=== PATIENT | female | born 1935 | race Caucasian/White ===

== ENCOUNTER 2025-03-04 18:38 | Emergency (ER) | payer MEDICARE, OTHER ==
[~2025-03-04] VITALS: Ht 165.1 cm; Wt 74.8 kg
[2025-03-04 18:52] VITALS: TEMP 98.1
[2025-03-04] MEDS ORDERED: ACETAMINOPHEN 325 MG TABLET ONE (19:38)
[2025-03-04] MEDS: ACETAMINOPHEN 325 MG TABLET PO ONE ×2 (19:42→22:05)
[2025-03-04 19:55] LABS: PLATELET COUNT (AUTO) 210 K/uL (150-450); RED BLOOD CELL COUNT(AUTO) 4.69 MIL/uL (4.0-5.2); RED CELL DISTRIBUTION WIDTH 13.8 % (11.5-15.0); WHITE BLOOD COUNT (AUTO) 7.5 K/uL (4.3-11.0)
[2025-03-04 20:09] LABS: CALCIUM, SERUM 9.2 mg/dL (8.5-10.1); CREATININE 0.9 mg/dL (0.6-1.3); SODIUM SERUM 136 mmol/L (136-145); UREA NITROGEN, BLOOD 12 mg/dL (7-18)
[2025-03-04 20:15] LABS: ASPARTATE AMINOTRANSFERASE 28 U/L (15-37); TOTAL PROTEIN, SERUM 8.0 g/dL (6.4-8.2)
[2025-03-04 22:16] VITALS: BP 140/95; O2SAT 98
== END 2025-03-04 22:10 | disposition home or self-care (01) ==
LOC: ER 18:45
DX: S01.01XA Laceration without foreign body of scalp, initial encounter (principal); R06.02 Shortness of breath; M54.2 Cervicalgia; W22.8XXA Striking against or struck by other objects, initial encounter; Y93.89 Activity, other specified; Y92.89 Other specified places as the place of occurrence of the external cause; Y99.8 Other external cause status
CPT/HCPCS: 36415; 70450-TC; 72125-TC; 80048-TC; 80076-TC; 84484-TC; 85025-TC